=== PATIENT | male | born 1970 | race African-American/Black ===

== ENCOUNTER 2023-06-18 16:31 | Emergency (ER) | payer MEDICAID ==
[~2023-06-18] VITALS: Ht 165.1 cm; Wt 63.6 kg
[2023-06-18] MEDS ORDERED: ONDANSETRON HCL 4 MG/2 ML VIAL IVP ONE (21:15)
[2023-06-18] MEDS ORDERED: MORPHINE SULFATE 4 MG/ML SYRINGE IVP ONE (21:15)
[2023-06-18 21:43] LABS: BASOPHILS % (AUTO) 1.4 % (0.0-2.0); HEMATOCRIT 39.8 % (41-53); HEMOGLOBIN 12.8 g/dL (13.5-17.5); LYMPHOCYTES # (AUTO) 2.4 K/uL (1.0-4.8); LYMPHOCYTES % (AUTO) 36.3 % (22.0-44.0); MEAN CORPUSCULAR HEMOGLOBIN 26.9 pg (26.0-34.0); MEAN CORPUSCULAR HGB CONC 32.1 G/dL (31.0-37.0); MEAN CORPUSCULAR VOLUME 84 fL (80-100); MONOCYTES # (AUTO) 0.6 K/uL (0.1-1.0); MONOCYTES % (AUTO) 9.7 % (2.0-9.0); NEUTROPHILS # (AUTO) 3.2 K/uL (1.8-7.7); NEUTROPHILS % (AUTO) 47.6 % (40.0-70.0); PLATELET COUNT (AUTO) 297 K/uL (150-450); RED BLOOD CELL COUNT(AUTO) 4.75 MIL/uL (4.50-5.90); RED CELL DISTRIBUTION WIDTH 14.5 % (11.5-14.5); WHITE BLOOD COUNT (AUTO) 6.6 K/uL (4.5-11.0)
[2023-06-18 22:00] LABS: ALANINE AMINOTRANSFERASE 19 U/L (12-78); ALKALINE PHOSPHATASE 56 U/L (46-116); ASPARTATE AMINOTRANSFERASE 16 U/L (15-37); BILIRUBIN,TOTAL 0.4 mg/dL (0.1-1.0); CALCIUM, TOTAL 9.1 mg/dL (8.8-10.5); CREATININE 1.14 mg/dL (0.60-1.30); GLOMERULAR FILTR. RATE CALC > 60 mL/min (>60); GLUCOSE,RANDOM 94 mg/dL (70-110); TOTAL PROTEIN, SERUM 7.2 g/dL (6.4-8.2); UREA NITROGEN, BLOOD 14 mg/dL (7-18)
[2023-06-18 22:07] LABS: ANION GAP 9 mmol/L (8-16); CARBON DIOXIDE 26 mmol/L (22-29); CHLORIDE 101 mmol/L (98-107); POTASSIUM 3.5 mmol/L (3.5-5.1); SODIUM SERUM 136 mmol/L (136-145)
[2023-06-18 22:19] VITALS: TEMP 98.2
[2023-06-18] MEDS ORDERED: IOHEXOL 350 MG/ML 100 ML VIAL ONE (22:38)
[2023-06-18] MEDS ORDERED: SODIUM CHLORIDE 0.9% 100 ML ONE (22:38)
[2023-06-18] MEDS ORDERED: AMOX1TAB16 PO (23:56)
[2023-06-19] MEDS ORDERED: AMOX TR/POT CLAV 875 MG/125 MG TABLET PO ONE
[2023-06-19] MEDS ORDERED: DOCU-385 PO (00:04)
[2023-06-19] MEDS ORDERED: ACET-3385 PO (00:04)
[2023-06-19 00:38] VITALS: BP 133/83; PULSE 87; RESP 18
[2023-06-19 01:36] LABS: APPEARANCE,URINE CLEAR (CLEAR); BILIRUBIN,URINE NEGATIVE (NEGATIVE); COLOR,URINE COLORLESS (YELLOW); GLUCOSE, URINE (UA) NEGATIVE (NEGATIVE); KETONES,URINE NEGATIVE (NEGATIVE); LEUKOCYTE ESTERASE ,URINE NEGATIVE (NEGATIVE); NITRATE,URINE NEGATIVE (NEGATIVE); OCCULT BLOOD,URINE NEGATIVE (NEGATIVE); PROTEIN,URINE NEGATIVE (NEGATIVE); SPECIFIC GRAVITIY, URINE 1.049 (1.003-1.030); UROBILINOGEN,URINE <=1.0 mg/dL (<=1.0)
[2023-06-19 01:37] LABS: ALCOHOL, URINE DRUG SCREEN NEGATIVE (NEGATIVE); AMPHET/METH SCREEN,URINE NEGATIVE (NEGATIVE); BARBITURATE SCREEN, URINE NEGATIVE (NEGATIVE); BENZODIAZEPINES SCREEN,URINE NEGATIVE (NEGATIVE); CANNABINOID SCREEN,URINE NEGATIVE (NEGATIVE); COCAINE SCREEN,URINE NEGATIVE (NEGATIVE); METHADONE SCREEN, URINE NEGATIVE (NEGATIVE); OPIATE SCREEN,URINE POSITIVE (NEGATIVE); PHENCYCLIDINE SCREEN,URINE NEGATIVE (NEGATIVE)
== END 2023-06-19 01:00 | disposition home or self-care (01) ==
LOC: EMS 16:33
DX: N49.9 Inflammatory disorder of unspecified male genital organ (principal); Z98.890 Other specified postprocedural states; Z88.6 Allergy status to analgesic agent
CPT/HCPCS: 99285; 74177; 96374; 96375; 80053; 85025; 87040; 36415; 80307; 81003; J2270; J2405; Q9967; J7050

== ENCOUNTER 2023-07-19 10:51 | Emergency (ER) | payer MEDICAID ==
[~2023-07-19] VITALS: Ht 165.1 cm; Wt 63.6 kg
[~2023-07-19 10:51] MED LIST: ACET-3385 PO; AMOX1TAB16 PO; DOCU-385 PO
[2023-07-19 10:55] VITALS: TEMP 98.6
[2023-07-19] MEDS ORDERED: TRAM-559 PO (13:29)
[2023-07-19] MEDS ORDERED: AMOX1TAB16 PO (13:29)
[2023-07-19] MEDS: AMOX TR/POT CLAV 875 MG/125 MG TABLET PO ONE (13:33)
[2023-07-19] MEDS: TraMADol HCL 50 MG TABLET PO ONE (13:33)
[2023-07-19 13:38] VITALS: BP 138/84; PULSE 79; RESP 18
== END 2023-07-19 13:41 | disposition home or self-care (01) ==
LOC: EMS 10:51
DX: L02.31 Cutaneous abscess of buttock (principal); Z88.6 Allergy status to analgesic agent; Z98.890 Other specified postprocedural states
CPT/HCPCS: 99283